=== PATIENT | female | born 1980 | race Caucasian/White ===

== ENCOUNTER 2016-06-30 10:28 | Emergency (ER) | payer MEDICAID ==
[~2016-06-30] VITALS: Ht 165.1 cm; Wt 89.0 kg
[2016-06-30] MEDS ORDERED: ACETAMINOPHEN WITH CODEINE 300/30MG TABLET PO ONE (14:00)
[2016-06-30 14:20] VITALS: BP 115/78
== END 2016-06-30 14:21 | disposition home or self-care (01) ==
LOC: ER 12:32
DX: N61.1 Abscess of the breast and nipple (principal); E11.9 Type 2 diabetes mellitus without complications; Z98.890 Other specified postprocedural states; Z87.440 Personal history of urinary (tract) infections
CPT/HCPCS: 99283

== ENCOUNTER 2019-03-09 22:03 | Emergency (ER) | payer MEDICAID ==
[~2019-03-09] VITALS: Ht 157.5 cm; Wt 64.0 kg
[2019-03-10] MEDS ORDERED: IBUPROFEN 600MG TABLET PO ONE (00:30)
[2019-03-10] MEDS ORDERED: TETANUS, DIPHTHERIA, PERTUSSIS VAC/PF 0.5ML (>7YR OLD) IM ONE (00:30)
[2019-03-10] MEDS ORDERED: CEPHALEXIN 250MG CAPSULE PO ONE (00:30)
[2019-03-10 03:38] VITALS: BP 124/71
== END 2019-03-10 03:39 | disposition home or self-care (01) ==
LOC: ER 22:03
DX: T22.112A Burn of first degree of left forearm, initial encounter (principal); T20.10XA Burn of first degree of head, face, and neck, unspecified site, initial encounter; Z98.890 Other specified postprocedural states; X11.8XXA Contact with other hot tap-water, initial encounter; Y93.89 Activity, other specified; Y92.89 Other specified places as the place of occurrence of the external cause; Y99.8 Other external cause status
CPT/HCPCS: 90471; 90715; 99283

== ENCOUNTER 2019-07-27 05:32 | Emergency (ER) | payer MEDICAID ==
[~2019-07-27] VITALS: Ht 157.5 cm; Wt 86.0 kg
[2019-07-27 05:39] VITALS: BP 138/90
[2019-07-27 06:23] LABS: CLARITY URINE CLOUDY (CLEAR); COLOR URINE YELLOW (YELLOW); KETONES URINE NEGATIVE (NEGATIVE); LEUKOCYTE ESTERASE URINE 2+ (NEGATIVE); NITRITE URINE NEGATIVE (NEGATIVE); OCCULT BLOOD URINE 2+ (NEGATIVE); PH URINE 5.5 (4.5-8.0); PROTEIN URINE 1+ (NEGATIVE); SPECIFIC GRAVITY URINE 1.011 (1.005-1.030); UROBILINOGEN URINE 0.2 E.U./dL (0.2-1.0)
== END 2019-07-27 06:47 | disposition home or self-care (01) ==
LOC: ER 05:32
DX: N39.0 Urinary tract infection, site not specified (principal); Z98.890 Other specified postprocedural states
CPT/HCPCS: 81003; 81025; 87077; 87186; 99283

== ENCOUNTER 2023-10-02 10:57 | Emergency (ER) | payer MEDICAID ==
[~2023-10-02] VITALS: Ht 157.5 cm; Wt 69.0 kg
[2023-10-02 11:05] VITALS: O2SAT 98
[2023-10-02 12:39] LABS: HEMATOCRIT. 42.6 % (36.0-48.0); HEMOGLOBIN. 13.9 g/dL (12.0-16.0); MEAN CORPUSCULAR HEMOGLOBIN 28.8 pg (28.0-32.0); MEAN CORPUSCULAR HGB CONC 32.6 g/dL (31.0-37.0); MEAN CORPUSCULAR VOLUME 88.3 fL (81.0-99.0); MEAN PLATELET VOLUME 9.8 fl (7.4-10.4); PLATELET 101 x1000/uL (130-400); RED BLOOD CELL COUNT 4.83 mill/uL (4.2-5.4); RED CELL DISTRIBUTION WIDTH 17.1 % (11.6-14.6); WHITE BLOOD COUNT 3.1 x1000/uL (4.5-11.0)
[2023-10-02 12:40] LABS: DIFFERENTIAL COMMENT 1
[2023-10-02 13:27] LABS: PLATELET ESTIMATE SLIGHTLY DECREASED
[2023-10-02 14:38] LABS: CLARITY URINE CLEAR (CLEAR); COLOR URINE YELLOW (YELLOW); GLUCOSE URINE 3+ (NEGATIVE); KETONES URINE NEGATIVE (NEGATIVE); LEUKOCYTE ESTERASE URINE NEGATIVE (NEGATIVE); NITRITE URINE NEGATIVE (NEGATIVE); OCCULT BLOOD URINE NEGATIVE (NEGATIVE); PH URINE 6.5 (4.5-8.0); PROTEIN URINE NEGATIVE (NEGATIVE); SPECIFIC GRAVITY URINE 1.008 (1.005-1.030)
[2023-10-02 14:50] LABS: SQUAMOUS EPITHELIAL CELL URINE 3+ /lpf (RARE/1+)
[2023-10-02 14:51] LABS: BACTERIA URINE 1+
[2023-10-02 14:53] LABS: YEAST URINE 1+
[2023-10-02 14:55] LABS: RBC URINE NONE SEEN /hpf (0-2); WBC URINE 0-2 /hpf (0-2)
[2023-10-02 15:01] VITALS: BP 159/95; PULSE 111; RESP 18; TEMP 98.5
[2023-10-02] MEDS: FLUCONAZOLE 150MG TABLET PO NR (15:37)
== END 2023-10-02 15:50 | disposition home or self-care (01) ==
LOC: ER 10:57
DX: B37.31 Acute candidiasis of vulva and vagina (principal); Z20.822 Contact with and (suspected) exposure to COVID-19
CPT/HCPCS: 36415; 71045; 81003; 81025; 85025; 87426; 99284

== ENCOUNTER 2023-11-23 20:49 | Inpatient (IN) | payer SELFPAY ==
[~2023-11-23] VITALS: Ht 157.5 cm; Wt 72.1 kg
[2023-11-23] MEDS ORDERED: LORAZEPAM 2MG/ML INJ IV ONE (22:45)
[2023-11-23 22:50] LABS: BASOPHILS % 0.9 % (0.0-2.0); HEMATOCRIT. 42.9 % (36.0-48.0); HEMOGLOBIN. 14.2 g/dL (12.0-16.0); LYMPHOCYTES % 10.6 % (20.0-50.0); MEAN CORPUSCULAR HEMOGLOBIN 29.1 pg (28.0-32.0); MEAN CORPUSCULAR HGB CONC 33.2 g/dL (31.0-37.0); MEAN CORPUSCULAR VOLUME 87.7 fL (81.0-99.0); MEAN PLATELET VOLUME 9.4 fl (7.4-10.4); MONOCYTES % 10.6 % (2.0-8.0); NEUTROPHILS % 77.9 % (40.0-76.0); PLATELET 172 x1000/uL (130-400); RED CELL DISTRIBUTION WIDTH 17.1 % (11.6-14.6)
[2023-11-23 23:00] LABS: CHLORIDE 94 mEq/L (98-107); POTASSIUM 4.3 mEq/L (3.5-5.1); SODIUM 131 mEq/L (136-145)
[2023-11-23 23:01] LABS: CALCIUM 9.9 mg/dL (8.7-10.4); CARBON DIOXIDE 24 mEq/L (21-32)
[2023-11-23 23:06] LABS: CREATININE 0.8 mg/dL (0.6-1.0); GLUCOSE 291 mg/dL (70-105)
[2023-11-23 23:07] LABS: TROPONIN I HIGH SENSITIVITY 4 ng/L (3.0-34); UREA NITROGEN BLOOD 6 mg/dL (9-23)
[2023-11-23 23:08] LABS: ALANINE AMINOTRANSFERASE 92 IU/L (10-49); ALBUMIN 4.6 g/dL (3.2-4.8); ASPARTATE AMINOTRANSFERASE 110 IU/L (<34)
[2023-11-23 23:09] LABS: BILIRUBIN TOTAL 1.7 mg/dL (0.1-1.0); PROTEIN TOTAL 8.2 g/dL (6.0-8.3)
[2023-11-23 23:10] LABS: ETHANOL BLOOD < 10 mg/dL (<10)
[2023-11-24 00:18] LABS: HCG SCREEN NEGATIVE
[2023-11-24] MEDS: FOLIC ACID 1 MG, THIAMINE HCL 100 MG, MVI, ADULT NO.1 10 ML in DEXTROSE 5% WATER 1,000 ML IV ONE (03:45)
[2023-11-24] MEDS: LORAZEPAM 2MG/ML INJ IV NR (03:45)
[2023-11-24] MEDS: SODIUM CHLORIDE 0.9% 1,000 ML IV ONE (03:46)
[2023-11-24] MEDS ORDERED: CLONIDINE 0.1MG TABLET PO PRN (14:15)
[2023-11-24] MEDS ORDERED: ONDANSETRON HCL 4MG/2ML INJ IV PRN (14:15)
[2023-11-24] MEDS ORDERED: LORAZEPAM 2MG/ML INJ IV PRN (14:15)
[2023-11-24] MEDS: PANTOPRAZOLE SODIUM 40 MG/VIAL IV SCH (14:39)
[2023-11-24] MEDS: THIAMINE HCL 100MG TABLET PO SCH (14:39)
[2023-11-24] MEDS: ACETAMINOPHEN 325MG TABLET PO PRN (16:08)
[2023-11-24 16:30] VITALS: BP 150/96; PULSE 94; RESP 18; TEMP 36.55848; O2SAT 100
[2023-11-24 17:28] VITALS: BP 150/96; PULSE 94; RESP 18; TEMP 36.5848
[2023-11-24 20:00] VITALS: BP 147/60; PULSE 64; RESP 20; TEMP 36.22512; O2SAT 99
[2023-11-24] MEDS: ZOLPIDEM TARTRATE 5MG TABLET PO PRN (21:39)
[2023-11-24] MEDS ORDERED: DEXTROSE 50% WATER 50ML SYRINGE IV PRN (23:45)
[2023-11-25] VITALS: BP 127/91; PULSE 81; RESP 20; TEMP 37.16964; O2SAT 98
[2023-11-25 04:00] VITALS: BP 142/93; PULSE 88; RESP 18; TEMP 36.22512; O2SAT 99
[2023-11-25 06:11] LABS: CHLORIDE 97 mEq/L (98-107); POTASSIUM 3.8 mEq/L (3.5-5.1); SODIUM 132 mEq/L (136-145)
[2023-11-25 06:12] LABS: CALCIUM 9.4 mg/dL (8.7-10.4); CARBON DIOXIDE 27 mEq/L (21-32)
[2023-11-25 06:17] LABS: CREATININE 0.6 mg/dL (0.6-1.0); GLUCOSE 214 mg/dL (70-105); TRIGLYCERIDE 103 mg/dL (0-150); UREA NITROGEN BLOOD 8 mg/dL (9-23)
[2023-11-25 06:18] LABS: LDL CHOLESTEROL 123 mg/dL (5-100)
[2023-11-25 06:19] LABS: ALANINE AMINOTRANSFERASE 70 IU/L (10-49); ALBUMIN 4.1 g/dL (3.2-4.8); ASPARTATE AMINOTRANSFERASE 107 IU/L (<34); BILIRUBIN DIRECT 0.8 mg/dL (<=3.0); BILIRUBIN TOTAL 1.7 mg/dL (0.1-1.0); CHOLESTEROL 214 mg/dL (<200); HDL CHOLESTEROL 80 mg/dL (>65); PROTEIN TOTAL 7.1 g/dL (6.0-8.3)
[2023-11-25 06:20] LABS: BASOPHILS % 0.8 % (0.0-2.0); EOSINOPHILS % 0.4 % (0.0-5.0); HEMATOCRIT. 40.5 % (36.0-48.0); HEMOGLOBIN. 13.3 g/dL (12.0-16.0); LYMPHOCYTES % 19.6 % (20.0-50.0); MEAN CORPUSCULAR HEMOGLOBIN 28.8 pg (28.0-32.0); MEAN CORPUSCULAR HGB CONC 32.9 g/dL (31.0-37.0); MEAN CORPUSCULAR VOLUME 87.6 fL (81.0-99.0); MEAN PLATELET VOLUME 9.7 fl (7.4-10.4); MONOCYTES % 11.8 % (2.0-8.0); NEUTROPHILS % 67.4 % (40.0-76.0); PLATELET 109 x1000/uL (130-400); RED BLOOD CELL COUNT 4.62 mill/uL (4.2-5.4); RED CELL DISTRIBUTION WIDTH 16.9 % (11.6-14.6); WHITE BLOOD COUNT 3.9 x1000/uL (4.5-11.0)
[2023-11-25] MEDS: BLOOD SUGAR DIAGNOSTIC STRIP TEST SCH (07:01)
[2023-11-25] MEDS: INSULIN LISPRO 100 UNITS/ML SUBCUT SCH (07:05)
[2023-11-25 08:00] VITALS: BP 137/87; PULSE 83; RESP 18; TEMP 36.72516; O2SAT 99
[2023-11-25 12:00] VITALS: BP 134/99; PULSE 100; RESP 18; TEMP 36.3918; TEMP 36.39180; O2SAT 100
[2023-11-25] MEDS ORDERED: THIA100T72 PO (13:46)
[2023-11-25] MEDS ORDERED: GABA-529 MT (13:46)
[2023-11-25 13:55] VITALS: BP 134/99; PULSE 100; TEMP 97.5; O2SAT 100
== END 2023-11-25 15:02 | disposition home or self-care (01) | DRG 48 ==
LOC: ER 20:49 → EDBEDREQ 22:47 → 5WST 11-24 01:04 → EDBEDREQTM 11-24 01:09 → EDBEDREQ 11-24 01:09 → 8WST 11-24 17:25
PROVIDERS: ADMIT Internal Medicine; ATTEND Internal Medicine
DX: E11.40 Type 2 diabetes mellitus with diabetic neuropathy, unspecified (principal); E87.1 Hypo-osmolality and hyponatremia; E86.1 Hypovolemia; F32.9 Major depressive disorder, single episode, unspecified; F10.939 Alcohol use, unspecified with withdrawal, unspecified; Y90.9 Presence of alcohol in blood, level not specified; Z63.4 Disappearance and death of family member; Z98.891 History of uterine scar from previous surgery
CPT/HCPCS: 36415; 71045; 76700; 80048; 80053; 80061; 80076; 80320; 82962; 83036; 83735; 84484; 84703; 85025; 93005; 93970; 99285; J1815; J2060; J2470; J3411; J3490; J7030; J7070; G0480

== ENCOUNTER 2025-02-05 00:54 | Emergency (ER) | payer MEDICAID ==
[~2025-02-05] VITALS: Ht 154.9 cm; Wt 77.0 kg
[~2025-02-05 00:54] MED LIST: AMLO10TA80 MT; AMLO10TA80 PO; GABA-529 MT; GABA-529 PO; INSU100I28 SQ; LANC-1022 MC; LANC1KIT37 MC; LANTUSUD SUBCUT; LOSA100T33 MT; LOSA100T33 PO; METF-1149 MT; THIA100T72 PO
[2025-02-05 01:14] VITALS: TEMP 98; O2SAT 95
[2025-02-05 02:28] LABS: BASOPHILS % 0.4 % (0.0-2.0); EOSINOPHILS % 0.1 % (0.0-5.0); HEMATOCRIT. 40.1 % (36.0-48.0); HEMOGLOBIN. 13.1 g/dL (12.0-16.0); LYMPHOCYTES % 12.1 % (20.0-50.0); MEAN PLATELET VOLUME 9.0 fl (7.4-10.4); MONOCYTES % 11.7 % (2.0-8.0); NEUTROPHILS % 75.7 % (40.0-76.0); PLATELET 282 x1000/uL (130-400); RED BLOOD CELL COUNT 4.86 mill/uL (4.2-5.4); RED CELL DISTRIBUTION WIDTH 17.6 % (11.6-14.6)
[2025-02-05 02:38] LABS: CREATININE 1.0 mg/dL (0.6-1.0); UREA NITROGEN BLOOD 7 mg/dL (9-23)
[2025-02-05 02:40] LABS: ASPARTATE AMINOTRANSFERASE 23 IU/L (<34); BILIRUBIN DIRECT 0.3 mg/dL (<=3.0)
[2025-02-05 02:41] LABS: BILIRUBIN TOTAL 0.9 mg/dL (0.1-1.0); PROTEIN TOTAL 7.5 g/dL (6.0-8.3)
[2025-02-05] MEDS: KETOROLAC 15MG/ML VIAL IM ONE (03:27)
[2025-02-05] MEDS ORDERED: NAPR-1176 MT (03:42)
[2025-02-05 03:52] VITALS: BP 105/74; PULSE 102; RESP 18; O2SAT 100
== END 2025-02-05 03:53 | disposition home or self-care (01) ==
LOC: ER 00:54
DX: K80.20 Calculus of gallbladder without cholecystitis without obstruction (principal); I10 Essential (primary) hypertension; Z79.899 Other long term (current) drug therapy
CPT/HCPCS: 99285; 76705; 80076; 80048; 83690; 85025; 36415; 93005; 96372; J1885

== ENCOUNTER 2025-03-08 21:04 | Emergency (ER) | payer MEDICAID ==
[~2025-03-08] VITALS: Ht 152.4 cm; Wt 64.0 kg
[~2025-03-08 21:04] MED LIST changes: +NAPR-1176 MT
[2025-03-08 21:08] VITALS: O2SAT 97
[2025-03-08] MEDS: SODIUM CHLORIDE 0.9% 1,000 ML IV ONE (21:45)
[2025-03-08 22:20] LABS: BASOPHILS % 1.3 % (0.0-2.0); EOSINOPHILS % 0.7 % (0.0-5.0); HEMATOCRIT. 34.5 % (36.0-48.0); HEMOGLOBIN. 11.4 g/dL (12.0-16.0); LYMPHOCYTES % 26.5 % (20.0-50.0); MEAN PLATELET VOLUME 8.3 fl (7.4-10.4); MONOCYTES % 12.6 % (2.0-8.0); NEUTROPHILS % 58.9 % (40.0-76.0); PLATELET 317 x1000/uL (130-400); RED BLOOD CELL COUNT 4.18 mill/uL (4.2-5.4); RED CELL DISTRIBUTION WIDTH 18.3 % (11.6-14.6)
[2025-03-08 22:26] LABS: CREATININE 0.6 mg/dL (0.6-1.0)
[2025-03-08 22:27] LABS: ETHANOL BLOOD 106 mg/dL (<10); PROTEIN TOTAL 7.3 g/dL (6.0-8.3); UREA NITROGEN BLOOD < 5 mg/dL (9-23)
[2025-03-08 22:28] LABS: ASPARTATE AMINOTRANSFERASE 29 IU/L (<34)
[2025-03-08 22:29] LABS: BILIRUBIN DIRECT 0.1 mg/dL (<=3.0); BILIRUBIN TOTAL 0.4 mg/dL (0.1-1.0)
[2025-03-08 22:31] LABS: HCG SCREEN NEGATIVE
[2025-03-08] MEDS: MAGNESIUM/ALUMINUM HYDROXIDE/SIMETHICONE 30ML UDC PO ONE (23:00)
[2025-03-08] MEDS: ONDANSETRON HCL 4MG/2ML INJ IV ONE (23:08)
[2025-03-08] MEDS: PANTOPRAZOLE SODIUM 40 MG/VIAL IV ONE (23:08)
[2025-03-08] MEDS: KETOROLAC 15MG/ML VIAL IV NR (23:09)
[2025-03-09] MEDS: VISCOUS LIDOCAINE 2% 15 ML UDC MM ONE (00:15)
[2025-03-09 00:28] VITALS: TEMP 36.8; O2SAT 100
[2025-03-09 00:30] VITALS: BP 133/85; PULSE 95; RESP 17
[2025-03-09] MEDS: MORPHINE SULFATE 2 MG/ML INJ (NOT FOR IM USE) IV ONE (00:30)
[2025-03-09] MEDS ORDERED: MAG-55 MT (00:41)
[2025-03-09] MEDS ORDERED: PROT40 MT (00:41)
[2025-03-09 00:57] LABS: CLARITY URINE CLEAR (CLEAR); COLOR URINE YELLOW (YELLOW); GLUCOSE URINE TRACE (NEGATIVE); KETONES URINE NEGATIVE (NEGATIVE); LEUKOCYTE ESTERASE URINE NEGATIVE (NEGATIVE); NITRITE URINE NEGATIVE (NEGATIVE); OCCULT BLOOD URINE NEGATIVE (NEGATIVE); PH URINE 7.0 (4.5-8.0); PROTEIN URINE NEGATIVE (NEGATIVE); SPECIFIC GRAVITY URINE 1.005 (1.005-1.030); UROBILINOGEN URINE 0.2 E.U./dL (0.2-1.0)
[2025-03-09 01:17] LABS: *AMPHETAMINES SCREEN URINE NEGATIVE (NEGATIVE); *BARBITURATES SCREEN URINE NEGATIVE (NEGATIVE); *BENZODIAZEPINES SCREEN URINE NEGATIVE (NEGATIVE); *COCAINE SCREEN URINE NEGATIVE (NEGATIVE); CANNABINOID URINE SCREEN PRESUMPTIVE POSITIVE (NEGATIVE); ECSTASY MDMA SCREEN URINE NEGATIVE (NEGATIVE); METHADONE URINE SCREEN NEGATIVE (NEGATIVE); OPIATES URINE SCREEN NEGATIVE (NEGATIVE); PHENCYCLIDINE URINE SCREEN NEGATIVE (NEGATIVE)
[2025-03-09 02:27] LABS: SQUAMOUS EPITHELIAL CELL URINE FEW /lpf (RARE/1+)
[2025-03-09 02:28] LABS: RBC URINE 0-2 /hpf (0-2); WBC URINE 0-2 /hpf (0-2)
[2025-03-09 02:29] LABS: BACTERIA URINE TRACE
== END 2025-03-09 01:00 | disposition home or self-care (01) ==
LOC: ER 21:17 → CMPBEDREQ 03-09 07:23
DX: R10.11 Right upper quadrant pain (principal); K29.70 Gastritis, unspecified, without bleeding; I10 Essential (primary) hypertension; E11.9 Type 2 diabetes mellitus without complications; E78.00 Pure hypercholesterolemia, unspecified; Z79.899 Other long term (current) drug therapy; Z79.84 Long term (current) use of oral hypoglycemic drugs; Z79.4 Long term (current) use of insulin; Z79.1 Long term (current) use of non-steroidal anti-inflammatories (NSAID)
CPT/HCPCS: 80076; 80305; 80048; 81003; 80320; 84703; 83690; 85025; 36415; 76705; 93005; 96361; 96374; 96375 ×2; 99285; J1885; J2405; J2470; J7030; J2270; G0480